=== PATIENT | female | born 1940 | race Caucasian/White ===

== ENCOUNTER 2019-02-04 16:10 | Observation (INO) | payer MEDICARE ==
[2019-02-04] MEDS ORDERED: SODIUM CHLORIDE 0.9% 500 ML 500 ML IV STA (18:37)
[2019-02-04] MEDS ORDERED: MECLIZINE 12.5 MG TAB PO STA (18:37)
[2019-02-04] MEDS ORDERED: ONDANSETRON 4 MG/2 ML VIAL IVP PRN (18:38)
[2019-02-04] MEDS ORDERED: NALOXONE 0.4 MG/ML 1 ML VIAL IV PRN (18:38)
[2019-02-04] MEDS ORDERED: ACETAMINOPHEN TAB 500 MG TAB PO PRN (18:41)
--- NOTE | 2019-02-04 18:47 | ED ---
Dizziness HPI - General Chief Complaint: Dizziness Stated Complaint: Neuro Time Seen by Provider: 02/04/19 18:10 Source: patient, EMS Mode of arrival: EMS Limitations: no limitations - History of Present Illness Initial Comments: This patient is a 79-year-old woman who presents as a transfer from [facility], where she was seen for constellation of symptoms early in the afternoon. The patient reports she had been in her usual state of health last night, feeling pretty well. She states that shortly after waking this morning, she started feeling fuzzy in the head, and also noted that when she was trying to walk she constantly felt like she was falling towards her left side. She noted the symptoms around 10 AM. The patient had gone to the other hospital where she had been seen, having a computed tomography scan that was reportedly without acute finding, chest x-ray that was largely unremarkable, and labs that did show an elevated BUN to creatinine ratio. The physician there had discussed transfer to be seen by neurology and sent her here. The patient states that she is feeling approximately the same, maybe a little less fuzzy in the head. She states that she still feels like she is "listing to the left side," when she tries to walk. The remainder of her review of systems is unremarkable. MD Complaint: dizziness, difficulty walking -: hour(s) Timing: gradual onset Description: off-balance, difficulty walking History of Same: No History of Trauma: No Severity: moderate Improves With: remaining still Worsens With: movement Associated Symptoms: denies other symptoms - Related Data Home Medications Medication Instructions Recorded Confirmed ALPRAZolam [Xanax] 0.25 mg PO DAILY 02/04/19 02/04/19 Acetaminophen [Tylenol] 500 mg PO Q4-6H PRN 02/04/19 02/04/19 Aspirin EC [Ecotrin Low Dose] 81 mg PO DAILY 02/04/19 02/04/19 Baclofen 10 mg PO HS 02/04/19 02/04/19 Cholecalciferol [Vitamin D3 (25 1,000 unit PO DAILY 02/04/19 02/04/19 Mcg = 1000 Iu)] Clopidogrel Bisulfate [Plavix] 75 mg PO DAILY 02/04/19 02/04/19 Ezetimibe [Zetia] 10 mg PO DAILY 02/04/19 02/04/19 Fenofibrate 54 mg PO HS 02/04/19 02/04/19 Furosemide [Lasix] 20 mg PO HS 02/04/19 02/04/19 L.acidoph,Paracasei, B.lactis 1 cap PO DAILY 02/04/19 02/04/19 [Probiotic] Lisinopril 20 mg PO DAILY 02/04/19 02/04/19 Metoprolol Succinate [Toprol XL] 50 mg PO DAILY 02/04/19 02/04/19 Sertraline HCl [Zoloft] 50 mg PO DAILY 02/04/19 02/04/19 Allergies Allergy/AdvReac Type Severity Reaction Status Date / Time amoxicillin Allergy Unknown Verified 02/04/19 17:36 atorvastatin [From Lipitor] Allergy PANCREATITI Verified 02/04/19 17:38 S cephalexin [From Keflex] Allergy Unknown Verified 02/04/19 17:38 phenytoin [From Dilantin] Allergy Unknown Verified 02/04/19 17:36 regadenoson [From Lexiscan] Allergy Anaphylaxis Verified 02/04/19 17:38 isosorbide [From Imdur] AdvReac SEVERE Verified 02/04/19 17:38 HEADACHE Review of Systems ROS Statement: Those systems with pertinent positive or pertinent negative responses have been documented in the HPI. ROS Other: All systems not noted in ROS Statement are negative. Constitutional: Denies: fever, chills Respiratory: Denies: cough, dyspnea Cardiovascular: Denies: chest pain, palpitations Gastrointestinal: Denies: abdominal pain, nausea, vomiting, diarrhea, melena, hematochezia Genitourinary: Denies: dysuria Musculoskeletal: Denies: back pain Skin: Denies: rash Neurological: Reports: vertigo. Denies: headache, weakness, numbness, paresthesias, confusion Past Medical History Past Medical History: Hyperlipidemia, Hypertension History of Any Multi-Drug Resistant Organisms: None Reported Past Surgical History: Appendectomy, Bladder Surgery, Bowel Resection, Cholecystectomy, Heart Catheterization With Stent, Hernia Repair, Hysterectomy, Orthopedic Surgery Additional Past Surgical History / Comment(s): cataract, carpel tunner, Past Psychological History: Anxiety, Depression Smoking Status: Never smoker Past Alcohol Use History: Occasional Past Drug Use History: None Reported General Exam Limitations: no limitations General appearance: alert, in no apparent distress Head exam: Present: atraumatic, normocephalic Eye exam: Present: normal appearance, PERRL, EOMI. Absent: scleral icterus, conjunctival injection, nystagmus ENT exam: Present: mucous membranes dry Neck exam: Present: normal inspection Respiratory exam: Present: normal lung sounds bilaterally. Absent: respiratory distress, wheezes, rales, rhonchi, stridor Cardiovascular Exam: Present: regular rate, normal rhythm, normal heart sounds. Absent: systolic murmur, diastolic murmur, rubs, gallop GI/Abdominal exam: Present: soft. Absent: distended, tenderness, guarding, rebound, rigid, mass Extremities exam: Present: normal inspection, normal capillary refill. Absent: pedal edema, calf tenderness Back exam: Present: normal inspection. Absent: CVA tenderness (R), CVA tenderness (L) Neurological exam: Present: alert, oriented X3, CN II-XII intact. Absent: motor sensory deficit Skin exam: Present: warm, dry, intact, normal color. Absent: rash Course Vital Signs 02/04/19 02/04/19 16:13 18:09 Temperature 97.6 F Pulse Rate 62 60 Respiratory 18 18 Rate Blood Pressure 150/82 161/68 O2 Sat by Pulse 96 97 Oximetry EKG Findings - EKG Results: EKG: interpreted by ERMD, sinus rhythm, normal axis, normal QRS, normal ST/T, no acute changes EKG shows: bradycardia (Rate approximate 59 bpm) Disposition Clinical Impression: Vertigo Disposition[facility] Condition: Fair Referrals: Mia Haq MD [Primary Care Provider] - 1-2 days
[2019-02-04 19:04] LABS: Basophils # (A) 0.1 k/uL (0-0.2); Basophils % (A) 1 %; Eosinophils # (A) 0.2 k/uL (0-0.7); Eosinophils % (A) 2 %; HCT 37.9 % (34.0-46.0); HGB 12.5 gm/dL (11.4-16.0); Lymphocytes # (A) 1.5 k/uL (1.0-4.8); Lymphocytes % (A) 16 %; MCH 31.1 pg (25.0-35.0); MCHC 32.9 g/dL (31.0-37.0); MCV 94.3 fL (80.0-100.0); Mean Platelet Volume 6.8; Monocytes # (A) 0.4 k/uL (0-1.0); Monocytes % (A) 4 %; Neutrophils # (A) 7.3 k/uL (1.3-7.7); Neutrophils % (A) 76 %; Platelet Count 300 k/uL (150-450); RBC 4.02 m/uL (3.80-5.40); RDW 14.7 % (11.5-15.5); WBC 9.6 k/uL (3.8-10.6)
[2019-02-04 19:12] LABS: Albumin 4.3 g/dL (3.5-5.0); Calcium 9.5 mg/dL (8.4-10.2); Potassium 4.5 mmol/L (3.5-5.1); Total Bilirubin 0.4 mg/dL (0.2-1.3); Total Protein 7.2 g/dL (6.3-8.2)
[2019-02-04] MEDS: FENOFIBRATE 54 MG TAB PO SCH (23:08)
[2019-02-04] MEDS: BACLOFEN 10 MG TAB PO SCH (23:08)
[2019-02-04] MEDS: FAMOTIDINE 20 MG TAB PO SCH (23:08)
[2019-02-05] MEDS: SODIUM CHLORIDE 0.9% 1,000 ML IV SCH ×2 (00:42→16:59)
[2019-02-05] MEDS: LISINOPRIL 20 MG TAB PO SCH (07:54)
[2019-02-05] MEDS: EZETIMIBE 10 MG TAB PO SCH (07:54)
[2019-02-05] MEDS: FAMOTIDINE 20 MG TAB PO SCH (07:54)
[2019-02-05] MEDS: ALPRAZolam 0.25 MG TAB PO SCH (07:54)
[2019-02-05] MEDS: CHOLECALCIFEROL 1,000 UNIT TAB PO SCH (07:54)
[2019-02-05] MEDS: METOPROLOL SUCCINATE (ER) 50 MG TAB.ER.24H PO SCH (07:54)
[2019-02-05] MEDS: SERTRALINE 50 MG TAB PO SCH (07:54)
[2019-02-05] MEDS: CLOPIDOGREL 75 MG TAB PO SCH (07:55)
[2019-02-05] MEDS: ASPIRIN 81 MG PO SCH (07:55)
--- NOTE | 2019-02-05 10:23 | P.CNNES ---
History of Present Illness Consult date: 02/05/19 Reason for Consult: Dizziness Chief complaint: Dizziness History of Present Illness: REFERRING PHYSICIAN: Dr. Ankur Norris HISTORY OF PRESENT ILLNESS: Thank you for allowing me to evaluate Ms. Justine Drake. Ms. Drake is a 79-year-old woman with past medical history of hypertension, hy perlipidemia, coronary artery disease status post stent placement, presenting with episodes of "feeling off." Patient states that yesterday morning, when she woke up, she felt a bit off and fuzzy in her head. She was planning to clean the kitchen floor, but she decided to rest. Her came later that day, and because patient continued to feel on well, patient went to a nearby hospital ([facility]), where patient her blood tested, had a CT head that was reportedly normal, and also chest x-ray there was normal. The try to walk her in the hospital, the patient gave me into the left side, so the physician decided to send patient to [facility] for neurological evaluation. Patient denies any headache, nausea, vomiting, weakness, numbness or tingling during this episode. Patient also denies any blurry or double vision. Denies any recent sickness, fevers, ear infections, sick contact, recent travel. Patient has never had symptoms similar to this before. Patient had her stent placed about 5 years ago, for which patient has been aspirin and Plavix since. 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 Patient is not on any seizure medications at this time PAST MEDICAL HISTORY: Hypertension, hyperlipidemia, coronary artery disease status post stent placement PAST SURGICAL HISTORY: Appendectomy, bladder surgery, bowel resection, cholecystectomy, hernia repair, hysterectomy, stent placement HOME MEDICATIONS: Ezetimibe, probiotics, Lasix, vitamin D3, aspirin, Plavix, Xanax, sertraline, metoprolol, lisinopril, baclofen, fenofibrate ALLERGIES: Amoxicillin, atorvastatin, cephalexin, phenytoin, isosorbide, regadenoson SOCIAL HISTORY: He denies any smoking/alcohol abuse/drug abuse history. FAMILY HISTORY: Father may have a small stroke. Cancer history REVIEW OF SYSTEMS: The 14 systems are reviewed and no additional points are identified compared to the review of systems documented history and physical PHYSICAL EXAMINATION: VITAL SIGNS: Temperature 97.9 pulse rate 61 respiratory 18 blood pressure 152/81 O2 sat 96% on room air GEN.: NAD, pleasant and cooperative HEENT: NCAT, sclera without icterus NECK: Supple SKIN AND EXTREMITIES: Warm to touch, no edema NEURO: MENTAL STATUS: Patient alert and oriented to self, place, time. Able to name the current president. Speech fluent, able to name and repeat, following all commands readily. CRANIAL NERVES II THROUGH XII: II: Pupils are equal and reactive to light symmetrically. No afferent pupillary defect. Visual silva are intact. III, IV, : No ptosis. Extraocular movements full. No nystagmus. V: Facial sensation intact from V1-3. VII. No clear facial asymmetry. VIII: Hearing intact to finger rub bilaterally. IX, X: Symmetric palate elevation. XII: Shoulder shrug intact. XII: Tongue midline without fasciculation or atrophy. MOTOR: Normal bulk/tone. No pronator drift or tremor. Strength is 5/5 throughout all 4 extremities. SENSORY: Intact to light touch in all 4 extremities. REFLEXES: 2+ throughout. Toes are downgoing. No clonus. Milla's is absent COORDINATION: Finger to nose intact. No dysmetria. GAIT: Very unstable when she is standing up. Patient tried to take a step or 2, but patient became very unstable. HINTS: negative DIAGNOSTIC TESTING: LABORATORY: WBC 9.6 hemoglobin 12.5 platelets 300 sodium 134 potassium 4.5 chloride 102 bicarb 23 BUN 26 creatinine 0.88 AST 20 ALT 16 glucose 92 troponins <0.012 IMAGING: EKG: Sinus bradycardia ASSESSMENT: 79-year-old woman with past medical history of hypertension, hyperlipidemia, coronary artery disease status post stent placement, presenting with episodes of "feeling off." On exam, patient without any nystagmus or vertigo, but patient is not able to walk on her own. When patient stood up, she leans toward her left side and almost fell. Patient with full strength in bilateral lower extremities. Unclear etiology of disequilibrium in this patient. Patient with multiple risk factors for stroke. Recommend stroke workup and management RECOMMENDATIONS: 1. MRI brain without contrast 2. CTA of head and neck with and without contrast 3. Transthoracic echocardiogram 4. Cardiac monitoring 5. Continue with aspirin and Plavix for this patient this patient sent for her cardiac condition. Patient reportedly with ALLERGIES to atorvastatin. We'll ask about specific reaction to atorvastatin. 6. Labs: TSH, A1C, FLP 7. Neurology will continue to follow Past Medical History Past Medical History: GERD/Reflux, Hyperlipidemia, Hypertension, Seizure Disorder Additional Past Medical History / Comment(s): last seizure about 25 years ago History of Any Multi-Drug Resistant Organisms: None Reported Past Surgical History: Appendectomy, Bladder Surgery, Bowel Resection, Cholec ystectomy, Heart Catheterization With Stent, Hernia Repair, Hysterectomy, Orthopedic Surgery Additional Past Surgical History / Comment(s): cataract, carpel tunnel Past Anesthesia/Blood Transfusion Reactions: No Reported Reaction Date of Last Stent Placement:: 2013 Past Psychological History: Anxiety, Depression Smoking Status: Never smoker Past Alcohol Use History: Occasional Past Drug Use History: None Reported - Past Family History Father Family Medical History: CVA/TIA, Hypertension Mother Family Medical History: Hypertension Brother(s) Family Medical History: Hypertension, Myocardial Infarction ([place]) Daughter(s) Family Medical History: No Reported History Son(s) Additional Family Medical History / Comment(s): anxiety, depression Medications and Allergies Home Medications Medication Instructions Recorded Confirmed Type ALPRAZolam [Xanax] 0.25 mg PO DAILY 02/04/19 02/05/19 History Acetaminophen [Tylenol] 500 mg PO Q4-6H PRN 02/04/19 02/05/19 History Aspirin EC [Ecotrin Low Dose] 81 mg PO DAILY 02/04/19 02/05/19 History Baclofen 10 mg PO HS 02/04/19 02/05/19 History Cholecalciferol [Vitamin D3 (25 1,000 unit PO DAILY 02/04/19 02/05/19 History Mcg = 1000 Iu)] Clopidogrel Bisulfate [Plavix] 75 mg PO DAILY 02/04/19 02/05/19 History Ezetimibe [Zetia] 10 mg PO DAILY 02/04/19 02/05/19 History Fenofibrate 54 mg PO HS 02/04/19 02/05/19 History Furosemide [Lasix] 20 mg PO HS 02/04/19 02/05/19 History L.acidoph,Paracasei, B.lactis 1 cap PO DAILY 02/04/19 02/05/19 History [Probiotic] Lisinopril 20 mg PO DAILY 02/04/19 02/05/19 History Metoprolol Succinate [Toprol XL] 50 mg PO DAILY 02/04/19 02/05/19 History Sertraline HCl [Zoloft] 50 mg PO DAILY 02/04/19 02/05/19 History Allergies Allergy/AdvReac Type Severity Reaction Status Date / Time amoxicillin Allergy Unknown Verified 02/05/19 00:09 atorvastatin [From Lipitor] Allergy PANCREATITI Verified 02/05/19 00:09 S cephalexin [From Keflex] Allergy Unknown Verified 02/05/19 00:09 phenytoin [From Dilantin] Allergy Unknown Verified 02/05/19 00:09 regadenoson [From Lexiscan] Allergy Anaphylaxis Verified 02/05/19 00:09 isosorbide [From Imdur] AdvReac SEVERE Verified 02/05/19 00:09 HEADACHE Physical Examination - Vital Signs Vital Signs: Vital Signs Temp Pulse Pulse Resp BP BP BP 02/05/19 08:00 18 02/05/19 07:05 97.9 F 61 18 152/81 02/05/19 03:10 97.6 F 63 18 184/76 02/05/19 00:00 97.8 F 53 L 18 153/77 02/04/19 22:30 97.9 F 58 L 18 140/66 02/04/19 21:00 98.0 F 60 18 154/70 02/04/19 19:30 58 L 18 145/70 02/04/19 18:09 60 18 161/68 02/04/19 16:13 97.6 F 62 18 150/82 Pulse Ox 02/05/19 08:00 02/05/19 07:05 96 02/05/19 03:10 97 02/05/19 00:00 95 02/04/19 22:30 96 02/04/19 21:00 98 02/04/19 19:30 96 02/04/19 18:09 97 02/04/19 16:13 96 Intake and Output 02/04/19 02/05/19 02/05/19 22:59 06:59 14:59 Intake Total 240 Balance 240 Intake: Oral 240 Other: Voiding Method Toilet Toilet Diaper Diaper Incontinent Incontinent # Voids 2 Weight 72.575 kg Results - Laboratory Findings CBC and BMP: 02/04/19 18:50 02/04/19 18:50 Abnormal Lab Findings: Abnormal Labs 02/04/19 18:50 Sodium 134 L BUN 26 H
--- NOTE | 2019-02-05 11:26 | ECHOF ---
Referral Reason:vertigo; concern for stroke MEASUREMENTS -------- HEIGHT: 149.9 cm WEIGHT: 72.6 kg BP: 152/81 IVSd: 1.1 cm (0.6 - 1.1) LVIDd: 4.2 cm (3.9 - 5.3) LVPWd: 1.1 cm (0.6 - 1.1) IVSs: 1.8 cm LVIDs: 2.3 cm LVPWs: 1.5 cm LA Diam: 3.4 cm (2.7 - 3.8) RVIDd: 3.0 cm (< 3.3) LAESV Index (A-L): 23.90 ml/m Ao Diam: 3.4 cm (2.0 - 3.7) AV Cusp: 1.7 cm (1.5 - 2.6) EPSS: 0.3 cm MV E Bladimir: 1.01 m/s MV DecT: 288 ms MV A Bladimir: 1.17 m/s MV E/A Ratio: 0.87 RAP: 5.00 mmHg RVSP: 33.46 mmHg MV EF SLOPE: 68.23 mm/s (70 - 150) MV EXCURSION: 14.58 mm (> 18.000) FINDINGS -------- Resting bradycardia (HR<60bpm). This was a technically adequate study. The left ventricular size is normal. There is borderline concentric left ventricular hypertrophy. Overall left ventricular systolic function is normal with, an EF between 60 - 65 %. The right ventricle is normal in size. Normal LA size by volume 22+/-6 ml/m2. The right atrium is normal in size. Aneurysmal Interatrial septum. There is mild aortic valve sclerosis. The mitral valve leaflets are mildly thickened. Mild mitral annular calcification present. There is trace to mild mitral regurgitation. Mild tricuspid regurgitation present. Right ventricular systolic pressure is normal at < 35 mmHg. Trace/mild (physiologic) pulmonic regurgitation. The aortic root size is normal. Normal inferior vena cava with normal inspiratory collapse consistent with estimated right atrial pre ssure of 5 mmHg. There is no pericardial effusion. CONCLUSIONS -------- 1. Resting bradycardia (HR<60bpm). 2. This was a technically adequate study. 3. The left ventricular size is normal. 4. There is borderline concentric left ventricular hypertrophy. 5. Overall left ventricular systolic function is normal with, an EF between 60 - 65 %. 6. The right ventricle is normal in size. 7. Normal LA size by volume 22+/-6 ml/m2. 8. The right atrium is normal in size. 9. Aneurysmal Interatrial septum. 10. There is mild aortic valve sclerosis. 11. The mitral valve leaflets are mildly thickened. 12. Mild mitral annular calcification present. 13. There is trace to mild mitral regurgitation. 14. Mild tricuspid regurgitation present. 15. Right ventricular systolic pressure is normal at < 35 mmHg. 16. Trace/mild (physiologic) pulmonic regurgitation. 17. The aortic root size is normal. 18. Normal inferior vena cava with normal inspiratory collapse consistent with estimated right atrial pressure of 5 mmHg. 19. There is no pericardial effusion. CORPORATE INVESTIGATOR: Korin Britt RDCS
--- NOTE | 2019-02-05 15:40 | P.HPIM ---
History of Present Illness This is a pleasant 79 years old female with past medical history of hyperlipidemia, hypertension, GERD, seizure disorder who presents with dizziness, patient was feeling dizzy is like she feels she is spinning with the room, she denies presyncope. She denies nausea vomiting. No headache or chest pain or dyspnea. No weakness or abnormal sensation or difficulty swallowing or talking he had no diplopia. However she has both problem and she has to use a cane, Patient wasn't [facility] when she got computed tomography scan of the head and chest x-ray. Patient was transferred to [facility] for get an MRI of the brain. Vitas looks stable. Labs reviewed and it looks unremarkable. Patient states that her dizziness is improving currently but she still have difficulty moving Neurologist evaluated the patient and recommended MRI of the brain, CTA of the head and neck, echocardiogram, and TSH, hemoglobin A1c. Echo showed ejection fraction of 60-65%. With borderline concentric LVH. Review of Systems CONSTITUTIONAL: No fever, no malaise, no fatigue. HEENT: No recent visual problems or hearing problems. Denied any sore throat. CARDIOVASCULAR: No orthopnea, PND, no palpitations, no syncope. PULMONARY: No shortness of breath, no cough, no hemoptysis. GASTROINTESTINAL: No diarrhea, no nausea, no vomiting, no abdominal pain. Normoactive bowel sounds. NEUROLOGICAL: No headaches, no weakness, no numbness. HEMATOLOGICAL: Denies any bleeding or petechiae. GENITOURINARY: Denies any burning micturition, frequency, or urgency. MUSCULOSKELETAL/RHEUMATOLOGICAL: Denies any joint pain, swelling, or any muscle pain. ENDOCRINE: Denies any polyuria or polydipsia. Past Medical History Past Medical History: GERD/Reflux, Hyperlipidemia, Hypertension, Seizure Disorder Additional Past Medical History / Comment(s): last seizure about 25 years ago History of Any Multi-Drug Resistant Organisms: None Reported Past Surgical History: Appendectomy, Bladder Surgery, Bowel Resection, Cholecystectomy, Heart Catheterization With Stent, Hernia Repair, Hysterectomy, Orthopedic Surgery Additional Past Surgical History / Comment(s): cataract, carpel tunnel Past Anesthesia/Blood Transfusion Reactions: No Reported Reaction Date of Last Stent Placement:: 2013 Past Psychological History: Anxiety, Depression Smoking Status: Never smoker Past Alcohol Use History: Occasional Past Drug Use History: None Reported - Past Family History Father Family Medical History: CVA/TIA, Hypertension Mother Family Medical History: Hypertension Brother(s) Family Medical History: Hypertension, Myocardial Infarction ([place]) Daughter(s) Family Medical History: No Reported History Son(s) Additional Family Medical History / Comment(s): anxiety, depression Medications and Allergies Home Medications Medication Instructions Recorded Confirmed Type ALPRAZolam [Xanax] 0.25 mg PO DAILY 02/04/19 02/05/19 History Acetaminophen [Tylenol] 500 mg PO Q4-6H PRN 02/04/19 02/05/19 History Aspirin EC [Ecotrin Low Dose] 81 mg PO DAILY 02/04/19 02/05/19 History Baclofen 10 mg PO HS 02/04/19 02/05/19 History Cholecalciferol [Vitamin D3 (25 1,000 unit PO DAILY 02/04/19 02/05/19 History Mcg = 1000 Iu)] Clopidogrel Bisulfate [Plavix] 75 mg PO DAILY 02/04/19 02/05/19 History Ezetimibe [Zetia] 10 mg PO DAILY 02/04/19 02/05/19 History Fenofibrate 54 mg PO HS 02/04/19 02/05/19 History Furosemide [Lasix] 20 mg PO HS 02/04/19 02/05/19 History L.acidoph,Paracasei, B.lactis 1 cap PO DAILY 02/04/19 02/05/19 History [Probiotic] Lisinopril 20 mg PO DAILY 02/04/19 02/05/19 History Metoprolol Succinate [Toprol XL] 50 mg PO DAILY 02/04/19 02/05/19 History Sertraline HCl [Zoloft] 50 mg PO DAILY 02/04/19 02/05/19 History Allergies Allergy/AdvReac Type Severity Reaction Status Date / Time amoxicillin Allergy Unknown Verified 02/05/19 00:09 atorvastatin [From Lipitor] Allergy PANCREATITI Verified 02/05/19 00:09 S cephalexin [From Keflex] Allergy Unknown Verified 02/05/19 00:09 phenytoin [From Dilantin] Allergy Unknown Verified 02/05/19 00:09 regadenoson [From Lexiscan] Allergy Anaphylaxis Verified 02/05/19 00:09 isosorbide [From Imdur] AdvReac SEVERE Verified 02/05/19 00:09 HEADACHE Physical Exam Vitals: Vital Signs Temp Pulse Pulse Resp BP BP BP 02/05/19 15:06 97.4 F L 56 L 16 115/72 02/05/19 12:00 18 02/05/19 11:00 97.4 F L 58 L 18 121/76 02/05/19 08:00 18 02/05/19 07:05 97.9 F 61 18 152/81 02/05/19 03:10 97.6 F 63 18 184/76 02/05/19 00:00 97.8 F 53 L 18 153/77 02/04/19 22:30 97.9 F 58 L 18 140/66 02/04/19 21:00 98.0 F 60 18 154/70 02/04/19 19:30 58 L 18 145/70 02/04/19 18:09 60 18 161/68 02/04/19 16:13 97.6 F 62 18 150/82 Pulse Ox 02/05/19 15:06 96 02/05/19 12:00 02/05/19 11:00 96 02/05/19 08:00 02/05/19 07:05 96 02/05/19 03:10 97 02/05/19 00:00 95 02/04/19 22:30 96 02/04/19 21:00 98 02/04/19 19:30 96 02/04/19 18:09 97 02/04/19 16:13 96 Intake and Output 02/05/19 02/05/19 02/05/19 06:59 14:59 22:59 Intake Total 440 Balance 440 Intake: Oral 240 Other 200 Other: Voiding Method Toilet Toilet Diaper Diaper Incontinent Incontinent # Voids 2 GENERAL: The patient is alert and oriented x3, not in any acute distress. Well developed, well nourished. HEENT: Pupils are round and equally reacting to light. EOMI. No scleral icterus. No conjunctival pallor. Normocephalic, atraumatic. No pharyngeal erythema. No thyromegaly. CARDIOVASCULAR: S1 and S2 present. No murmurs, rubs, or gallops. PULMONARY: Chest is clear to auscultation, no wheezing or crackles. ABDOMEN: Soft, nontender, nondistended, normoactive bowel sounds. No palpable organomegaly. MUSCULOSKELETAL: No joint swelling or deformity. EXTREMITIES: No cyanosis, clubbing, or pedal edema. -NEUROLOGICAL: Gross cranial nerves are grossly intact. Strength is 5/5 in all limbs. Sensation is intact. Patient feels dizzy if she gets out of bed SKIN: No rashes. Results CBC & Chem 7: 02/04/19 18:50 02/04/19 18:50 Labs: Abnormal Lab Results - Last 24 Hours (Table) 02/04/19 Range/Units 18:50 Sodium 134 L (137-145) mmol/L BUN 26 H (7-17) mg/dL Thrombosis Risk Factor Assmnt - Choose All That Apply Any of the Below Risk Factors Present?: Yes Each Factor Represents 1 point: Hx of IBD, Obesity (BMI >25) Other Risk Factors: Yes Each Risk Factor Represents 3 Points: Age 75 years or older Thrombosis Risk Factor Assessment Total Risk Factor Score: 5 Thrombosis Risk Factor Assessment Level: High Risk Assessment and Plan Assessment: Dizziness, possible vertigo versus nonspecific dizziness. Rule out posterior cerebral stroke Hypertension History of hyperlipidemia History of seizure Plan: This is a pleasant 79 years old female who presents with dizziness. Neurology evaluation is appreciated she recommended MRI of the brain, CTA of the head and neck, echocardiogram. And blood work including TSH and hemoglobin A1c. Labs and medication were reviewed.. Continue same treatment. Continue with symptomatic treatment. Resume home medication. Monitor lytes and vitals. DVT and GI prophylaxis. Further recommendations of the clinical course of the pat ient DVT prophylaxis: Subcutaneous heparin GI Prophylaxis: Pepcid PT/OT: Pending Prognosis is guarded
[2019-02-05 20:21] LABS: Hemoglobin A1C 5.7 % (4.0-6.0)
[2019-02-05] MEDS ORDERED: FAMOTIDINE 20 MG/2 ML VIAL IV SCH (21:00)
[2019-02-05] MEDS: FENOFIBRATE 54 MG TAB PO SCH (21:48)
[2019-02-05] MEDS: HEPARIN SODIUM,PORCINE 5,000 UNIT/ML 1 ML VIAL SQ SCH (21:48)
[2019-02-05] MEDS: BACLOFEN 10 MG TAB PO SCH (21:48)
[2019-02-06] MEDS: CHOLECALCIFEROL 1,000 UNIT TAB PO SCH (08:22)
[2019-02-06] MEDS: METOPROLOL SUCCINATE (ER) 50 MG TAB.ER.24H PO SCH (08:23)
[2019-02-06] MEDS: LISINOPRIL 20 MG TAB PO SCH (08:23)
[2019-02-06] MEDS: CLOPIDOGREL 75 MG TAB PO SCH (08:23)
[2019-02-06] MEDS: EZETIMIBE 10 MG TAB PO SCH (08:24)
[2019-02-06] MEDS: SERTRALINE 50 MG TAB PO SCH (08:24)
[2019-02-06] MEDS: ASPIRIN 81 MG PO SCH (08:24)
[2019-02-06] MEDS: HEPARIN SODIUM,PORCINE 5,000 UNIT/ML 1 ML VIAL SQ SCH (08:25)
[2019-02-06 09:00] VITALS: RESP 16
[2019-02-06] MEDS ORDERED: FAMOTIDINE 20 MG TAB PO SCH (09:00)
[2019-02-06] MEDS ORDERED: FAMOTIDINE 20 MG/2 ML VIAL IV SCH (09:00)
[2019-02-06] MEDS: ALPRAZolam 0.25 MG TAB PO SCH (09:23)
--- NOTE | 2019-02-06 11:48 | MR ---
EXAMINATION TYPE: MR angio head/neck wo con DATE OF EXAM: 02/06/2019 COMPARISON: None HISTORY: VERTIGO; concern for stroke TECHNIQUE: Time of flight images focusing on the [place] were performed without contrast.. 2-D and 3-D postprocessing imaging is performed. FINDINGS: There is a hypoplastic A1 segment of the right anterior cerebral artery. Carotid arteries a re symmetric in caliber. No sizable aneurysm or vascular malformation. Right vertebral artery is kaylene nant. IMPRESSION: 1. No sizable aneurysm or vascular malformation EXAMINATION TYPE: MR angio head/neck wo con DATE OF EXAM: 02/06/2019 COMPARISON: HISTORY: VERTIGO; concern for stroke Standard multiplanar, multisequence MRI departmental protocol Multiplanar, multisequence images MRA neck were acquired. FINDINGS: Exam is somewhat limited by motion artifact particularly near the aortic arch. Grossly ther e is symmetric caliber to the common carotid arteries. Mild atherosclerotic changes seen bilaterally with no evidence of significant hemodynamic stenosis. IMPRESSION: No significant hemodynamic stenosis.
--- NOTE | 2019-02-06 11:59 | MR ---
EXAMINATION TYPE: MR brain wo con DATE OF EXAM: 02/06/2019 COMPARISON: CT brain 03/07/2019 HISTORY: VERTIGO; concern for stroke TECHNIQUE: T1-weighted sagittal, T2, FLAIR, and diffusion axial, and T2 coronal coronal views of the brain are submitted. FINDINGS: There is no evidence of acute ischemia. There is mild to moderate generalized degenerative change. Fo rosendo and confluent areas of abnormal signal within the white matter are noted bilaterally. Findings ar e most typical remote microvascular ischemia. Signal focally within the right basal ganglia suggestive of remote lacunar infarction. Craniocervical junction maintained. Partially empty sella turcica. No cerebellopontine angle mass. Changes of chronic sinusitis noted. Changes of chronic mastoiditis. IMPRESSION: 1. Degenerative and nonspecific white matter changes most typical remote ischemia. No diagnostic evid ence of acute ischemia.
--- NOTE | 2019-02-06 13:29 | P.PN ---
Progress Note - Text Progress Note Date: 02/06/19 SUBJECTIVE/INTERVAL EVENTS: No overnight events. Patient is having less difficulty with disequilibrium while walking although she still needs some assistance PHYSICAL EXAMINATION: VITAL SIGNS: Temperature 97.9 pulse rate 62 respiratory rate 16 blood pressure 119/77 O2 saturation 97% on room air GEN.: NAD, pleasant and cooperative HEENT: NCAT, sclera without icterus NECK: Supple SKIN AND EXTREMITIES: Warm to touch, no edema NEURO: MENTAL STATUS: Patient alert and oriented to self, place, time. Able to name the current president. Speech fluent, able to name and repeat, following all commands readily. CRANIAL NERVES II THROUGH XII: II: Pupils are equal and reactive to light symmetrically. No afferent pupillary defect. Visual silva are intact. III, IV, : No ptosis. Extraocular movements full. No nystagmus. V: Facial sensation intact from V1-3. VII. No clear facial asymmetry. VIII: Hearing intact to finger rub bilaterally. IX, X: Symmetric palate elevation. XII: Shoulder shrug intact. XII: Tongue midline without fasciculation or atrophy. MOTOR: Normal bulk/tone. No pronator drift or tremor. Strength is 5/5 in RUE/RLE. 4/5 in LUE/LLE. SENSORY: Intact to light touch in all 4 extremities. REFLEXES: 2+ throughout. Toes are downgoing. No clonus. Milla's is absent COORDINATION: Finger to nose intact. No dysmetria. GAIT: Very unstable when she is standing up. Patient is able to take a few steps on her own. HINTS: negative DIAGNOSTIC TESTING: LABORATORY: WBC 9.6 hemoglobin 12.5 platelets 300 sodium 134 potassium 4.5 chloride 102 bicarb 23 BUN 26 creatinine 0.88 AST 20 ALT 16 glucose 92 troponins <0.012 Total cholesterol 160 LDL 90 HDL 41 triglycerides 144 TSH 2.77 hemoglobin A1c 5.7 IMAGING: EKG: Sinus bradycardia Transthoracic echocardiogram 02/05/2019: Resting bradycardia. LV/LA/RA sizes are all normal. EF 60-65%. Borderline concentric left ventricular hypertrophy MRI brain without contrast 02/06/2019: Degenerative and nonspecific white matter changes most typical remote ischemia in right basal ganglia. Most likely lacunar infarct. No diagnostic evidence of acute ischemia. MRA head and neck without contrast 02/06/2019: Hypoplastic A1 segment of the right AVA. Carotid arteries are symmetric in caliber. No sizable aneurysm or vascular malformation. No significant hemodynamic stenosis ASSESSMENT: 79-year-old woman with past medical history of hypertension, hyperlipidemia, coronary artery disease status post stent placement, presenting with episodes of "feeling off." On exam, patient without any nystagmus or vertigo, but patient is not able to walk on her own. When patient stood up, she leans toward her left side and almost fell. Patient with full strength in bilateral lower extremities. Unclear etiology of disequilibrium in this patient. Patient with multiple risk factors for stroke. 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 TTE and cardiac monitoring unremarkable. Patient states she had pancreatitis while on Lipitor. RECOMMENDATIONS: 1. Continue with aspirin and Plavix for this patient this patient sent for her cardiac condition. Unfortunately, patient cannot be on lipitor as pt with significant adverse effect from previous Lipitor use. 2. PT/OT 3. Neurology outpatient follow-up within 2-3 weeks of discharge 4. Neurology will sign off at this time. Please feel free to contact Neurology again if with additional questions or concerns.
[2019-02-06] MEDS ORDERED: MECLIZINE 12.5 MG TAB PO PRN (15:19)
[2019-02-06 16:26] VITALS: BP 126/73; PULSE 56; TEMP 98
--- NOTE | 2019-02-06 23:25 | P.DS ---
Providers Date of admission: 02/04/19 18:41 Attending physician: Qasim Bucio Consults: 02/04/19 18:39 Consult Physician Routine Consulting Provider: Yasmeen Odell Consult Reason/Comments: Vertigo Do you want consulting provider notified?: Yes Primary care physician: Mia Haq [facility] Course: Diagnoses: Dizziness, possible vertigo versus nonspecific dizziness. Rule out posterior cerebral stroke Hypertension History of hyperlipidemia History of seizure Hospital course This is a pleasant 79 years old female with past medical history of hyperlipidemia, hypertension, GERD, seizure disorder who presents with dizziness, patient was feeling dizzy is like she feels she is spinning with the room, she denies presyncope. She denies nausea vomiting. No headache or chest pain or dyspnea. No palpitation. No weakness or abnormal sensation or difficulty swallowing or talking, she had no diplopia. However she has balance problem and she has to use a cane, Patient wasn't [facility] when she got computed tomography scan of the head and chest x-ray. Patient was transferred to [facility] for get an MRI of the brain. Recommended home care versus subacute rehab because she needed 24/7 supervision patient was treated symptomatically and she showed interval significant improvement, today her dizziness or significantly improved down to 1-2/10 in severity. She can function much better and she is happy about it, she worked with physical therapy team recommended subacute rehab or home health care, I talked to the patient and and bedside and they wanted home health ca re.Vitas looks stable. Labs reviewed and it looks unremarkable. EKG showing sinus rhythm at [address]-T changes. Neurologist evaluated the patient and recommended MRI/MRA of the brain and neck: No aneurysm, no evidence of acute ischemia. Serial troponins were negative. echocardiogram: Ejection fraction is 60-65%,With borderline concentric LVH. with mild aortic valve sclerosis, and TSH, hemoglobin A1c and lipid profile are within normal limits. Neurologist recommended to continue with aspirin and Plavix and follow-up as an outpatient in 2-3 weeks Problems and management plan were discussed with the patient and he verbalized understanding and acceptance Patient was found stable and can be discharged home however he needs follow-up as an outpatient. Patient was instructed to follow up with her PCP in the neurologist in one week and she agrees and said she will follow up. pt wants to make her own appointments Gen: patient is a AAOx3, no distress CVS: S1-S2, RRR, no murmur Lungs: B/L CTA, no wheezing Abdomen: soft, no distention, no tenderness, positive bowel sounds Extremity: no leg edema or induration Time spent more than 35 minutes Patient Condition at Discharge: Fair Plan - Discharge Summary Discharge Rx Participant: No New Discharge Prescriptions: New Meclizine [Antivert] 12.5 mg PO TID PRN #60 tab PRN Reason: Vertigo Continue Ezetimibe [Zetia] 10 mg PO DAILY Acetaminophen [Tylenol] 500 mg PO Q4-6H PRN PRN Reason: Pain L.acidoph,Paracasei, B.lactis [Probiotic] 1 cap PO DAILY Furosemide [Lasix] 20 mg PO HS Cholecalciferol [Vitamin D3 (25 Mcg = 1000 Iu)] 1,000 unit PO DAILY Aspirin EC [Ecotrin Low Dose] 81 mg PO DAILY ALPRAZolam [Xanax] 0.25 mg PO DAILY Sertraline HCl [Zoloft] 50 mg PO DAILY Metoprolol Succinate [Toprol XL] 50 mg PO DAILY Lisinopril 20 mg PO DAILY Baclofen 10 mg PO HS Fenofibrate 54 mg PO HS Clopidogrel Bisulfate [Plavix] 75 mg PO DAILY Discharge Medication List ALPRAZolam [Xanax] 0.25 mg PO DAILY 02/04/19 [History] Acetaminophen [Tylenol] 500 mg PO Q4-6H PRN 02/04/19 [History] Aspirin EC [Ecotrin Low Dose] 81 mg PO DAILY 02/04/19 [History] Baclofen 10 mg PO HS 02/04/19 [History] Cholecalciferol [Vitamin D3 (25 Mcg = 1000 Iu)] 1,000 unit PO DAILY 02/04/19 [History] Clopidogrel Bisulfate [Plavix] 75 mg PO DAILY 02/04/19 [History] Ezetimibe [Zetia] 10 mg PO DAILY 02/04/19 [History] Fenofibrate 54 mg PO HS 02/04/19 [History] Furosemide [Lasix] 20 mg PO HS 02/04/19 [History] L.acidoph,Paracasei, B.lactis [Probiotic] 1 cap PO DAILY 02/04/19 [History] Lisinopril 20 mg PO DAILY 02/04/19 [History] Metoprolol Succinate [Toprol XL] 50 mg PO DAILY 02/04/19 [History] Sertraline HCl [Zoloft] 50 mg PO DAILY 02/04/19 [History] Meclizine [Antivert] 12.5 mg PO TID PRN #60 tab 02/06/19 [Rx] Follow up Appointment(s)/Referral(s): Mia Haq MD [Primary Care Provider] - 1-[address] [facility], [NON-STAFF] - 1 Week Mark Mesa DO [STAFF PHYSICIAN] - 2 Weeks Patient Instructions/Handouts: Vertigo (DC) Discharge Disposition: HOME WITH HOME HEALTH SERVICES
[2019-02-07] MEDS ORDERED: FAMOTIDINE 20 MG TAB PO SCH (09:00)
== END 2019-02-06 17:41 | disposition home health service (06) ==
LOC: EC 16:10 → 3SCARD 18:41 → 1SOBS 22:54
PROVIDERS: ADMIT Hospitalist; ATTEND Hospitalist
DX: R42 Dizziness and giddiness (principal); R26.2 Difficulty in walking, not elsewhere classified; R79.89 Other specified abnormal findings of blood chemistry; I10 Essential (primary) hypertension; R00.1 Bradycardia, unspecified; I08.3 Combined rheumatic disorders of mitral, aortic and tricuspid valves; E78.5 Hyperlipidemia, unspecified; I25.10 Atherosclerotic heart disease of native coronary artery without angina pectoris; F41.9 Anxiety disorder, unspecified; F32.9 Major depressive disorder, single episode, unspecified; K21.9 Gastro-esophageal reflux disease without esophagitis; E66.9 Obesity, unspecified; Z68.32 Body mass index [BMI] 32.0-32.9, adult; Z79.02 Long term (current) use of antithrombotics/antiplatelets; Z79.82 Long term (current) use of aspirin; Z79.899 Other long term (current) drug therapy; Z88.0 Allergy status to penicillin; Z88.1 Allergy status to other antibiotic agents; Z88.8 Allergy status to other drugs, medicaments and biological substances; Z90.49 Acquired absence of other specified parts of digestive tract; Z90.710 Acquired absence of both cervix and uterus; Z95.5 Presence of coronary angioplasty implant and graft; Z98.49 Cataract extraction status, unspecified eye; Z86.69 Personal history of other diseases of the nervous system and sense organs; Z86.73 Personal history of transient ischemic attack (TIA), and cerebral infarction without residual deficits; Z87.19 Personal history of other diseases of the digestive system; Z80.9 Family history of malignant neoplasm, unspecified; Z82.49 Family history of ischemic heart disease and other diseases of the circulatory system; Z82.3 Family history of stroke; Z81.8 Family history of other mental and behavioral disorders
CPT/HCPCS: 96372 ×2; 96374; 96361; 99285; 36415; 93005; 93306; 97162; 97166; 80061; 80053; 84443; 84484 ×2; 85025; 83036; 70544; 70547; 70551; G0378 ×4; J1644 ×2

== ENCOUNTER → 2020-02-19 | Day surgery (SDC) | payer MEDICARE ==
[2020-02-18 09:25] VITALS: BMI 31.8
[~2020-02-19] MED LIST: LACTATED RINGERS 1,000 ML IV SCH; LIDOCAINE 1% (10MG/ML) FOR IV START INTRADERMA PRN; LIDOCAINE 1% INJ 10MG/ML (20 ML MDV) ONE; PROPOFOL 10 MG/ML 20 ML VIAL IV ONE
[2020-02-19 13:45] VITALS: TEMP 98.3
--- NOTE | 2020-02-19 14:02 | P.GSHP ---
History of Present Illness H&P Date: 02/19/20 Chief Complaint: GI bleed, rectal prolapse This 80-year-old female been safe for colonoscopy. She has issues with rectal bleeding due to rectal prolapse. 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" History of Any Multi-Drug Resistant Organisms: None Reported Past Surgical History: Appendectomy, Bladder Surgery, Bowel Resection, Breast Surgery, Cholecystectomy, Heart Catheterization, Heart Catheterization With Stent, Hernia Repair, Hysterectomy, Orthopedic Surgery, Tubal Ligation Additional Past Surgical History / Comment(s): giacomo cataracts, rt carpel tunnel, bowel resection for "bowel infection" with temporary colostomy/later reversed , surgery for ovarian cyst, D&C's, giacomo oophorectomy, rt breast biopsy, rt hand trigger thumb, two cardiac stents, Past Anesthesia/Blood Transfusion Reactions: No Reported Reaction Date of Last Stent Placement:: 2012 Smoking Status: Never smoker - Past Family History Father Family Medical History: CVA/TIA, Hypertension Mother Family Medical History: No Reported History Brother(s) Family Medical History: Hypertension, Myocardial Infarction ([place]) Daughter(s) Family Medical History: No Reported History Son(s) Additional Family Medical History / Comment(s): anxiety, depression Medications and Allergies Home Medications Medication Instructions Recorded Confirmed Type ALPRAZolam [Xanax] 0.25 mg PO HS 02/04/19 02/19/20 History Acetaminophen [Tylenol] 500 mg PO Q4-6H PRN 02/04/19 02/19/20 History Aspirin EC [Ecotrin Low Dose] 81 mg PO DAILY 02/04/19 02/19/20 History Baclofen 10 mg PO HS 02/04/19 02/19/20 History Cholecalciferol [Vitamin D3 (25 1,000 unit PO DAILY 02/04/19 02/19/20 History Mcg = 1000 Iu)] Clopidogrel Bisulfate [Plavix] 75 mg PO DAILY 02/04/19 02/19/20 History Ezetimibe [Zetia] 10 mg PO DAILY 02/04/19 02/19/20 History Fenofibrate 54 mg PO HS 02/04/19 02/19/20 History Furosemide [Lasix] 20 mg PO Q48H 02/04/19 02/19/20 History L.acidoph,Paracasei, B.lactis 1 cap PO DAILY 02/04/19 02/19/20 History [Probiotic] Metoprolol Succinate [Toprol XL] 50 mg PO DAILY 02/04/19 02/19/20 History Sertraline HCl [Zoloft] 50 mg PO DAILY 02/04/19 02/19/20 History lisinopriL 20 mg PO DAILY 02/04/19 02/19/20 History Meclizine [Antivert] 12.5 mg PO TID PRN #60 tab 02/06/19 02/19/20 Rx Furosemide [Lasix] 10 mg PO Q48H 02/18/20 02/19/20 History Sulfamethox-Tmp 800-160Mg [Bactrim 1 tab PO DAILY 02/18/20 02/19/20 History DS 800-160 mg] Allergies Allergy/AdvReac Type Severity Reaction Status Date / Time amoxicillin Allergy Unknown Verified 02/19/20 13:29 atorvastatin [From Lipitor] Allergy PANCREATITI Verified 02/19/20 13:29 S cephalexin [From Keflex] Allergy Unknown Verified 02/19/20 13:29 phenytoin [From Dilantin] Allergy Unknown Verified 02/19/20 13:29 regadenoson [From Lexiscan] Allergy Anaphylaxis Verified 02/19/20 13:29 isosorbide [From Imdur] AdvReac SEVERE Verified 02/19/20 13:29 [facility]AC[facility] - Exam Vital Signs Temp Pulse Resp BP Pulse Ox 98.3 F 75 18 145/68 97 02/19/20 13:41 02/19/20 13:41 02/19/20 13:41 02/19/20 13:41 02/19/20 13:41 - General well developed, well nourished, no distress - Eyes PERRL - ENT normal pinna - Neck no masses - Respiratory normal expansion - Cardiovascular Rhythm: regular - Abdomen Abdomen: soft, non tender Assessment and Plan Assessment: GI bleed Rectal repair we'll perform colonoscopy.
--- NOTE | 2020-02-19 14:12 | P.OP ---
Date of Procedure: 02/19/20 Preoperative Diagnosis: Rectal prolapse Postoperative Diagnosis: External hemorrhoids Severe diverticulosis sigmoid colon Procedure(s) Performed: Colonoscopy Anesthesia: MAC Surgeon: Shamar Stark Pathology: none sent Condition: stable Disposition: PACU Description of Procedure: Patient's placed on the endoscopy table lateral position. She received IV sedation. Digital rectal exam was performed which revealed external hemorrhoids. The flexible colonoscope was then placed patient anus passed throughout the colon. Scope was passed beyond the sigmoid colon secondary to severe diverticulosis and tortuosity valve. Several times made to maneuver the colonoscope however this is impossible. Due to the risk of perforation side to withdraw the scope. The; extensive diverticular changes. The rectum appeared normal. Scope was withdrawn for patient.
[2020-02-19 14:17] VITALS: PULSE 65; RESP 16
[2020-02-19 14:34] VITALS: BP 125/74
--- NOTE | 2020-02-19 15:45 | XR ---
EXAMINATION TYPE: XR KUB DATE OF EXAM: 02/19/2020 COMPARISON: NONE HISTORY: PRELIM POST COLONOSCOPY TECHNIQUE: Single supine KUB image of the abdomen is obtained FINDINGS: Large amount of air is seen within the colon and distal small bowel and therefore barium enema could not be performed. Patient will be rescheduled for barium enema in the morning. No convincing evidence for pneumoperitoneum. No unusual calcifications. The lung bases are clear. The osseous structures are intact. IMPRESSION: 1. As above
== END ==
LOC: ORWHC2ENDO 13:08
PROVIDERS: ATTEND Surgery
DX: K57.31 Diverticulosis of large intestine without perforation or abscess with bleeding (principal); K64.4 Residual hemorrhoidal skin tags; Q43.8 Other specified congenital malformations of intestine; K62.3 Rectal prolapse; K21.9 Gastro-esophageal reflux disease without esophagitis; E78.5 Hyperlipidemia, unspecified; M19.90 Unspecified osteoarthritis, unspecified site; L30.9 Dermatitis, unspecified; N39.0 Urinary tract infection, site not specified; I12.9 Hypertensive chronic kidney disease with stage 1 through stage 4 chronic kidney disease, or unspecified chronic kidney disease; N18.9 Chronic kidney disease, unspecified; I25.10 Atherosclerotic heart disease of native coronary artery without angina pectoris; Z86.69 Personal history of other diseases of the nervous system and sense organs; Z87.19 Personal history of other diseases of the digestive system; Z90.49 Acquired absence of other specified parts of digestive tract; Z98.890 Other specified postprocedural states; Z95.5 Presence of coronary angioplasty implant and graft; Z90.710 Acquired absence of both cervix and uterus; Z98.51 Tubal ligation status; Z98.41 Cataract extraction status, right eye; Z98.42 Cataract extraction status, left eye; Z87.42 Personal history of other diseases of the female genital tract; Z90.722 Acquired absence of ovaries, bilateral; Z87.39 Personal history of other diseases of the musculoskeletal system and connective tissue; Z79.899 Other long term (current) drug therapy; Z79.82 Long term (current) use of aspirin; Z79.02 Long term (current) use of antithrombotics/antiplatelets; Z88.0 Allergy status to penicillin; Z88.8 Allergy status to other drugs, medicaments and biological substances; Z88.1 Allergy status to other antibiotic agents; Z82.3 Family history of stroke; Z82.49 Family history of ischemic heart disease and other diseases of the circulatory system; Z81.8 Family history of other mental and behavioral disorders
CPT/HCPCS: 74018; 45330; J2001; J2704

== ENCOUNTER → 2020-02-20 | Outpatient (CLI) | payer MEDICARE ==
--- NOTE | 2020-02-20 10:23 | FL ---
EXAMINATION TYPE: FL barium enema DATE OF EXAM: 02/20/2020 COMPARISON: Abdominal x-ray from yesterday. HISTORY: Incomplete colonoscopy yesterday. History of diverticulosis and prolapsed rectum. TECHNIQUE: A double contrast barium enema study is performed. Total of 1 minute 36 seconds fluorosco pic time utilized during procedure. 22 spot images saved to PACS. FINDINGS: Wedger Machine view of the abdomen shows overall non-obstructive bowel gas pattern. Some improvemen t in gas-filled colonic loops. Cholecystectomy clips redemonstrated. Incidental multilevel spurring a nd disc space narrowing throughout the lumbar spine. Enema scattered colonic diverticulosis with multiple prominent diverticulosis noted at level of the s igmoid colon. There is reflux of contrast into terminal ileum which is felt within normal limits. Pre sence of this along with moderate diverticulosis and some retained fecal debris makes evaluation for polyps suboptimal. No constricting mass or neoplasm identified. No suspicious stricture is seen. IMPRESSION: Successful filling to the cecum. No constricting lesion or neoplasm identified. Document ation of fairly moderate diffuse diverticulosis.
== END | disposition home or self-care (01) ==
LOC: RADFLMAIN 08:01
PROVIDERS: ATTEND Surgery
DX: K57.30 Diverticulosis of large intestine without perforation or abscess without bleeding (principal)
CPT/HCPCS: 74270

== ENCOUNTER 2020-03-17 06:34 | Day surgery (SDC) | payer MEDICARE ==
[2020-03-16 09:30] VITALS: BMI 31.3
[~2020-03-17 06:34] MED LIST changes: +HYDROmorphone 0.5 MG/0.5 ML SYRINGE IVP PRN; -LIDOCAINE 1% INJ 10MG/ML (20 ML MDV) ONE; +MIDAZOLAM 2 MG/2 ML VIAL IV PRN; -PROPOFOL 10 MG/ML 20 ML VIAL IV ONE; +Pre Op ABX Message 1 EACH MISC MISCELLANE ONE; +fentaNYL (PF) 50 MCG/ML 2 ML AMP IVP PRN
[2020-03-17] MEDS: HEPARIN SODIUM,PORCINE 5,000 UNIT/ML 1 ML VIAL SQ ONE ×2 (07:43→07:46)
[2020-03-17] MEDS: ONDANSETRON 4 MG/2 ML VIAL IVP ONE ×2 (07:43→07:46)
[2020-03-17] MEDS: DEXAMETHASONE SOD PHOSPHATE 10 MG/ML 1 ML VIAL IV ONE ×2 (07:43→07:46)
[2020-03-17] MEDS: ACETAMINOPHEN TAB 500 MG TAB PO ONE ×2 (07:43→07:46)
--- NOTE | 2020-03-17 08:30 | P.GSHP ---
History of Present Illness H&P Date: 03/17/20 Chief Complaint: Internal and external hemorrhoids This is a 80-year-old female presents today for hemorrhage. She's had issues with anal pain and bleeding. 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" History of Any Multi-Drug Resistant Organisms: None Reported Past Surgical History: Appendectomy, Bladder Surgery, Bowel Resection, Breast Surgery, Cholecystectomy, Heart Catheterization, Heart Catheterization With Stent, Hernia Repair, Hysterectomy, Orthopedic Surgery, Tubal Ligation Additional Past Surgical History / Comment(s): giacomo cataracts, rt carpel tunnel, bowel resection for "bowel infection" with temporary colostomy/later reversed , surgery for ovarian cyst, D&C's, giacomo oophorectomy, rt breast biopsy, rt hand trigger thumb, two cardiac stents, Past Anesthesia/Blood Transfusion Reactions: No Reported Reaction Date of Last Stent Placement:: 2012 Smoking Status: Never smoker - Past Family History Father Family Medical History: CVA/TIA, Hypertension Mother Family Medical History: No Reported History Brother(s) Family Medical History: Hypertension, Myocardial Infarction ([place]) Daughter(s) Family Medical History: No Reported History Son(s) Additional Family Medical History / Comment(s): anxiety, depression Medications and Allergies Home Medications Medication Instructions Recorded Confirmed Type ALPRAZolam [Xanax] 0.25 mg PO HS 02/04/19 03/16/20 History Acetaminophen [Tylenol] 500 mg PO Q4-6H PRN 02/04/19 03/16/20 History Aspirin EC [Ecotrin Low Dose] 81 mg PO DAILY 02/04/19 03/16/20 History Baclofen 10 mg PO HS 02/04/19 03/16/20 History Cholecalciferol [Vitamin D3 (25 1,000 unit PO DAILY 02/04/19 03/16/20 History Mcg = 1000 Iu)] Clopidogrel Bisulfate [Plavix] 75 mg PO DAILY 02/04/19 03/16/20 History Ezetimibe [Zetia] 10 mg PO DAILY 02/04/19 03/16/20 History Fenofibrate 54 mg PO HS 02/04/19 03/16/20 History Furosemide [Lasix] 20 mg PO Q48H 02/04/19 03/16/20 History L.acidoph,Paracasei, B.lactis 1 cap PO DAILY 02/04/19 03/16/20 History [Probiotic] Metoprolol Succinate [Toprol XL] 50 mg PO DAILY 02/04/19 03/16/20 History Sertraline HCl [Zoloft] 50 mg PO DAILY 02/04/19 03/16/20 History lisinopriL 20 mg PO DAILY 02/04/19 03/16/20 History Meclizine [Antivert] 12.5 mg PO TID PRN #60 tab 02/06/19 03/16/20 Rx Furosemide [Lasix] 10 mg PO Q48H 02/18/20 03/16/20 History Allergies Allergy/AdvReac Type Severity Reaction Status Date / Time amoxicillin Allergy Unknown Verified 03/17/20 07:05 atorvastatin [From Lipitor] Allergy PANCREATITI Verified 03/17/20 07:05 S cephalexin [From Keflex] Allergy Unknown Verified 03/17/20 07:05 phenytoin [From Dilantin] Allergy Unknown Verified 03/17/20 07:05 regadenoson [From Lexiscan] Allergy Anaphylaxis Verified 03/17/20 07:05 isosorbide [From Imdur] AdvReac SEVERE Verified 03/17/20 07:05 [facility]ACHE [facility] - Exam Vital Signs Temp Pulse Resp BP Pulse Ox 97 F L 63 17 190/94 98 03/17/20 07:38 03/17/20 07:38 03/17/20 07:38 03/17/20 07:38 03/17/20 07:38 - General well developed, well nourished, no distress - Eyes PERRL - ENT normal pinna - Neck no masses - Respiratory normal expansion - Cardiovascular Rhythm: regular - Abdomen Abdomen: soft, non tender - Rectum Internal and external hemorrhoids Assessment and Plan Assessment: Internal and external hemorrhoids. We'll perform hemorrhoidectomy.
[2020-03-17] MEDS ORDERED: PROPOFOL 10 MG/ML 20 ML VIAL IV ONE (08:51)
[2020-03-17] MEDS ORDERED: KETAMINE 10 MG/ML 20 ML VIAL ONE (08:51)
[2020-03-17] MEDS ORDERED: MIDAZOLAM 2 MG/2 ML VIAL ONE (08:51)
[2020-03-17] MEDS ORDERED: fentaNYL (PF) 50 MCG/ML 2 ML AMP ONE (08:51)
[2020-03-17] MEDS ORDERED: LIDOCAINE 1%-EPI 1:100,000 20 ML VIAL SQ ONE (09:05)
[2020-03-17] MEDS ORDERED: GELATIN SPONGE,ABSORB (LARGE) 1 EACH SPONGE TOPICAL ONE (09:09)
--- NOTE | 2020-03-17 09:23 | P.OP ---
Date of Procedure: 03/17/20 Preoperative Diagnosis: Internal and external hemorrhoids Postoperative Diagnosis: Internal and external hemorrhoids Procedure(s) Performed: Internal and external hemorrhoidectomy Anesthesia: MAC, regional Surgeon: Shamar Stark Estimated Blood Loss (ml): 10 Pathology: other (Internal hemorrhoids) Condition: stable Disposition: PACU Description of Procedure: The patient's placed on the operative table in the prone position. She received IV sedation. Her anus prepped and draped usual sterile fashion. The anal retractors placed anus. Patient had a left lateral hemorrhoidal column in the right anterior and right posterior hemorrhoidal column. The left lateral hemorrhoidal column was grasped with a Allis clamp and then using Harmonic scissors the hemorrhoid was performed. Next the right anterior and right posterior hemorrhoidal column was excised in identical fashion. 3-0 Vicryl was used to close the mucosal layer. There is no bleeding seen. A piece of Gelfoam placed anus. Patient top she will was sent to recovery room in stable condition.
[2020-03-17 09:33] VITALS: TEMP 97
[2020-03-17 10:11] VITALS: RESP 16
[2020-03-17 10:34] VITALS: PULSE 62
[2020-03-17 10:51] VITALS: BP 162/66
== END 2020-03-17 11:28 | disposition home or self-care (01) ==
LOC: OR 06:34
PROVIDERS: ATTEND Surgery
DX: K64.4 Residual hemorrhoidal skin tags (principal); K64.8 Other hemorrhoids; I10 Essential (primary) hypertension; K21.9 Gastro-esophageal reflux disease without esophagitis; E78.5 Hyperlipidemia, unspecified; M19.90 Unspecified osteoarthritis, unspecified site; G40.909 Epilepsy, unspecified, not intractable, without status epilepticus; F41.9 Anxiety disorder, unspecified; F32.9 Major depressive disorder, single episode, unspecified; Z79.02 Long term (current) use of antithrombotics/antiplatelets; Z79.82 Long term (current) use of aspirin; Z79.899 Other long term (current) drug therapy; Z88.0 Allergy status to penicillin; Z88.1 Allergy status to other antibiotic agents; Z88.8 Allergy status to other drugs, medicaments and biological substances; Z90.49 Acquired absence of other specified parts of digestive tract; Z90.89 Acquired absence of other organs; Z87.19 Personal history of other diseases of the digestive system; Z98.41 Cataract extraction status, right eye; Z98.42 Cataract extraction status, left eye; Z95.5 Presence of coronary angioplasty implant and graft; Z90.710 Acquired absence of both cervix and uterus; Z98.51 Tubal ligation status; Z98.890 Other specified postprocedural states; Z90.722 Acquired absence of ovaries, bilateral; Z82.3 Family history of stroke; Z82.49 Family history of ischemic heart disease and other diseases of the circulatory system; Z81.8 Family history of other mental and behavioral disorders
CPT/HCPCS: 46260; 88304; J2250; J1644; J1100; J2405; J3010; J2704